=== PATIENT | male | born 1940 | race Caucasian/White ===

== ENCOUNTER 2023-07-23 11:07 | Inpatient (IN) | payer MEDICARE, OTHER, SELFPAY ==
[2023-07-23] VITALS (15 sets, daily range): BP systolic 91–170; BP diastolic 58–91; PULSE 77–100; RESP 7–32; TEMP 36.8; O2SAT 90–99; BMI 26.4
[2023-07-23 12:49] LABS: Basophils % 0.6 %; Eosinophils % 0.6 %; Hematocrit 42.7 % (37-53); Lymphocytes # 0.1 10^3/uL (0.8-4.8); Lymphocytes % 7.1 %; Mean Corpuscular HGB Conc 35.1 g/dL (30-55); Mean Corpuscular Hemoglobin 31.6 pg (27-33); Mean Corpuscular Volume 90.1 fl (82-101); Mean Platelet Volume 9.5 fL (7.4-10.4); Monocytes % 1.3 %; Neutrophils # 1.38 10^3/uL (1.8-7.7); Neutrophils % 89.8 %; Nucleated Red Blood Cells % 0 %; Platelet Count 149 10^3/cmm (157-399); Red Blood Count 4.74 10^6/uL (3.85-5.65); Red Cell Distribution Width 12.6 % (12.1-15.1); White Blood Count 1.54 10^3/uL (3.29-11.43)
[2023-07-23 13:14] LABS: Alanine Aminotransferase 15 U/L (0-41); Alkaline Phosphatase 123 U/L (40-130); Anion Gap 18.3 (5-19); Aspartate Amino Transferase 18 U/L (0-40); Blood Urea Nitrogen 16 mg/dL (8-23); Calcium 9.1 mg/dL (8.5-10.5); Carbon Dioxide 22 mmol/L (22-29); Chloride 103 mmol/L (98-107); Globulin 3.1 g/dL (1.3-4.6); Glucose 150 mg/dL (65-115); Lipase 24 U/L (13-60); Osmolality Calculated 294 mOsm/kg (285-295); Potassium 3.3 mmol/L (3.5-5.1); Sodium 140 mmol/L (136-145); Total Bilirubin 1.2 mg/dL (0.15-1.2); Total Protein 7.1 g/dL (6.6-8.7)
--- NOTE | 2023-07-23 13:34 | ECG_ITS ---
[facility] Test Date: 2023-07-23 Pat Name: Adolfo Ramos Department: Room: Gender: Male Automatic Thread Winder: : 1940 Requested By: Imelda Burgess Order Number: [id number] Jayden MD: Mesfin Vitale M.D. Measurements Intervals [place] Rate: 105 P: 38 [place]: 207 QRS: 50 QRSD: 89 T: 108 QT: 345 QTc: 456 Interpretive Statements SINUS TACHYCARDIA WITH OCCASIONAL VENTRICULAR PREMATURE COMPLEXES WITH OCCASIONAL SUPRAVENTRICULAR PREMATURE COMPLEXES ST DEVIATION AND MODERATE T-WAVE ABNORMALITY, CONSIDER LATERAL ISCHEMIA [-0.1+ mV T-WAVE IN I/aVL/V5/V6] No previous ECG available for comparison Electronically Signed On 07-24-2023 23:27:16 DOBBY LOOM WEAVER by Mesfin Vitale M.D. [id number]
--- NOTE | 2023-07-23 13:42 | PC.PHAR ---
PT DOESN'T KNOW WHAT MEDS HE TAKES. PERMISSION GRANTED TO CALL [facility] [place].CLOSED UNTIL 2PM. 1:43 PM
[2023-07-23 14:03] LABS: Add Urine Culture? Yes; Add Urine Microscopic? YES; Bacteria Urine 3+ /hpf; Bilirubin Urine Neg (Negative); Blood Urine 3+ (Negative); Glucose Urine UA Norm (Normal); Ketones Urine Negative (Negative); Leukocyte Esterase Urine 1+ (Negative); Nitrate Urine Negative (Negative); Protein Urine 1+ (Negative); RBC Urine 0-4 /hpf (0-2); Specific Gravity, Urine 1.005 (1.005-1.030); Squamous Epithelial Cell Urine 0-4 /hpf (0-5); Urine Appearance Hazy (CLEAR); Urine Color Colorless (Yellow); Urobilinogen Urine Norm (Negative); WBC Urine 25-40 /hpf (0-5); pH Urine 7 (5-7)
--- NOTE | 2023-07-23 14:08 | PC.PHAR ---
PT GETS FAMOTIDINE 20 MG TWICE DAILY-FILLED AT [place]. PT ALSO GETS OMEPRAZOLE 40 MG DAILY-FILLED AT [facility]. VERIFIED WITH BOTH PHARMACIES 07/23/23
--- NOTE | 2023-07-23 14:12 | ED_ITS ---
HPI - Nausea/Vomiting/Diarrhea 2 General: Chief complaint: Nausea/Vomiting/Diarrhea Stated complaint: N/V / Chils Time Seen by Provider: 07/23/23 12:51 History of Present Illness: 82-year-old male presents to the emergen cy department with sudden onset of nausea and vomiting. He states he also felt like he was having some chills that occurred approximately 3 hours prior to arrival. Patient does have a history of BPH and has had a previous TURP. Patient states that he feels increasingly weak. Patient did report that he had some upper middle back pain for a brief period 3 days ago. He states this pain resolved at that time and he did not think anything further of it. Patient's states that they did have a CT calcium cardiac scan at [facility] in [facility] and she felt that the patient's CAC score was over 400. Associated nausea: Yes Associated symtoms: Reports nausea Review of Systems 2 GI: Reports: nausea and vomiting Physical Exam 2 Narrative: EXAM NARRATIVE: Constitutional: the patient appears well nourished and with normal development. Vital signs reviewed as documented. HENMT: Normocephalic, atraumatic. External ears normal appearance without drainage. Nose without drainage, normal appearance. Mucus membranes moist. Neck is supple, No jugular venous distension, trachea is midline, no appreciable carotid bruits. No lymphadenopathy. No meningeal signs. Flexion, extension and lateral rotation is without pain. Eyes: Pupils are equal, round, reactive to light and accommodation. No scleral icterus. Extra-ocular movement are intact. Thorax is symmetrical and with equal rise and fall with respirations. Resp: Lungs are clear to auscultation. No wheezes, rales, crackles or ronchi at present. Cardio: Regular rate and rhythm. Positive S1, S2. No appreciable murmurs, rubs or gallops. GI: Abdominal exam reveals normal bowel sounds to all quadrants. No organomegaly. No obvious palpable masses noted. No hepatomegally appreciated. Soft, non-tender to palpation. Extremity: Extremities are non-edematous and both femoral and pedal pulses are 2+ and equal bilaterally. Moves all extremities well, sensation in all extremities. Neuro: Alert and oriented x4, person, place, time and situation. Cranial nerves II through XII are grossly intact, there is no focal neurological deficits that I can appreciate at present. Motor strength in the upper and lower extremities are equal and bilateral 5/5. Psych: Cooperative, calm, normal thought process, appropriate judgment. Skin: No lesions, rashes. No gross abnormalities noted. Back: Symmetrical, no obvious deformity, No CVA tenderness Course 2 Vital Signs: Vital signs: Vital Signs Temperature 98.3 F 07/23/23 11:20 Pulse Rate 86 07/23/23 19:53 Respiratory Rate 29 H 07/23/23 19:53 Blood Pressure 126/80 07/23/23 19:53 Pulse Oximetry 93 07/23/23 19:53 Oxygen Delivery Me thod Room Air 07/23/23 19:34 Oxygen Flow Rate 2 07/23/23 16:04 MDM - Nausea/Vomiting/Diarrhea Medical Decision Making Physical exam completed and documented, I will obtain serial cardiac enzymes, serial twelve-lead EKGs, chest x-ray, CBC, CMP, urinalysis, B-type natriuretic peptide, PT/PTT/INR, and a chest x-ray. I will provide cardiac dose aspirin. I will also provide loading dose of heparin and heparin drip as well as evaluate the need for nitroglycerin drip. I have reviewed previous and pertinent medical records for assist in obtaining beneficial medical information to improved the care and treatment of the patient. I have consulted the hospitalist and placed a cardiology consultation. I have provided Rocephin for the patient's urinary tract infection. At the request of Dr. Puckett I have ordered a CT scan abdomen pelvis to rule out prostatitis. Lab Data I reviewed the patient's lab results. 07/23/23 12:35 07/23/23 12:35 Radiology Impressions Chest X-Ray 07/23/23 14:56 IMPRESSION: 1. No acute cardiopulmonary abnormality. Abdomen/Pelvis CT 07/23/23 18:15 IMPRESSION: 1. Findings suggestive of cystitis with ascending urinary infection bilaterally. No convincing evidence of pyelonephritis, though there are 2 subcentimeter foci of hypoenhancement in the left kidney raising the question of very early pyelonephritis. Correlation with urinalysis and laboratory findings is recommended. Laboratory Results WBC 1.54 10^3/uL (3.29-11.43) L 07/23/23 12:35 RBC 4.74 10^6/uL (3.85-5.65) 07/23/23 12:35 Hgb 15.00 g/dL (11.27-16.99) 07/23/23 12:35 Hct 42.7 % (37-53) 07/23/23 12:35 MCV 90.1 fl (82-101) 07/23/23 12:35 MCH 31.6 pg (27-33) 07/23/23 12:35 MCHC 35.1 g/dL (30-55) 07/23/23 12:35 RDW 12.6 % (12.1-15.1) 07/23/23 12:35 Plt Count 149 10^3/cmm (157-399) L 07/23/23 12:35 MPV 9.5 fL (7.4-10.4) 07/23/23 12:35 Neut % (Auto) 89.8 % 07/23/23 12:35 Lymph % (Auto) 7.1 % 07/23/23 12:35 [place] % (Auto) 1.3 % 07/23/23 12:35 Eos % (Auto) 0.6 % 07/23/23 12:35 Baso % (Auto) 0.6 % 07/23/23 12:35 Neut # (Auto) 1.38 10^3/uL (1.8-7.7) L 07/23/23 12:35 Lymph # (Auto) 0.1 10^3/uL (0.8-4.8) L 07/23/23 12:35 [place] # (Auto) 0.0 10^3/uL (0.2-0.9) L 07/23/23 12:35 Eos # (Auto) 0.0 10^3/uL (0.0-0.8) 07/23/23 12:35 Baso # (Auto) 0.0 10^3/uL (0.0-0.1) 07/23/23 12:35 Nucleated RBC % (auto) 0 % 07/23/23 12:35 Nucleated RBCs # 0.0 /100WBC 07/23/23 12:35 Sodium 140 mmol/L (136-145) 07/23/23 12:35 Potassium 3.3 mmol/L (3.5-5.1) L 07/23/23 12:35 Chloride 103 mmol/L (98-107) 07/23/23 12:35 Carbon Dioxide 22 mmol/L (22-29) 07/23/23 12:35 Anion Gap 18.3 (5-19) 07/23/23 12:35 BUN 16 mg/dL (8-23) 07/23/23 12:35 Creatinine 0.5 mg/dL (0.7-1.2) L 07/23/23 12:35 GFR Calculation Not Reportable 07/23/23 12:35 Glucose 150 mg/dL (65-115) H 07/23/23 12:35 Calculated Osmolality 294 mOsm/kg (285-295) 07/23/23 12:35 Lactic Acid 1.5 mmol/L (0.5-2.2) 07/23/23 12:35 Calcium 9.1 mg/dL (8.5-10.5) 07/23/23 12:35 Total Bilirubin 1.2 mg/dL (0.15-1.2) 07/23/23 12:35 AST 18 U/L (0-40) 07/23/23 12:35 ALT 15 U/L (0-41) 07/23/23 12:35 Alkaline Phosphatase 123 U/L (40-130) 07/23/23 12:35 Troponin T Baseline 50 ng/L (0-15) H 07/23/23 16:52 Troponin T 120 Minute 56.82 ng/L (0-15) H 07/23/23 19:10 Delta Troponin T 6.82 ABS# (0-10) 07/23/23 19:10 NT-Pro-B Natriuret Pep 1467 pg/mL (0-450) H 07/23/23 16:52 Total Protein 7.1 g/dL (6.6-8.7) 07/23/23 12:35 Albumin 4.0 g/dL (3.5-5.2) 07/23/23 12:35 Globulin 3.1 g/dL (1.3-4.6) 07/23/23 12:35 Lipase 24 U/L (13-60) 07/23/23 12:35 Procalcitonin 0.34 ng/mL (0-0.5) 07/23/23 12:35 Urine Color Colorless (Yellow) 07/23/23 11:11 Urine Appearance Hazy (CLEAR) A 07/23/23 11:11 Urine pH 7 (5-7) 07/23/23 11:11 Ur Specific Lillian 1.005 (1.005-1.030) 07/23/23 11:11 Urine Protein 1+ (Negative) H 07/23/23 11:11 Urine Glucose (UA) Norm (Normal) 07/23/23 11:11 Urine Ketones Negative (Negative) 07/23/23 11:11 Urine Blood 3+ (Negative) H 07/23/23 11:11 Urine Nitrate Negative (Negative) 07/23/23 11:11 Urine Bilirubin Neg (Negative) 07/23/23 11:11 Urine Urobilinogen Norm mg/dL (Negative) 07/23/23 11:11 Ur Leukocyte Esterase 1+ (Negative) H 07/23/23 11:11 Urine RBC 0-4 /hpf (0-2) H 07/23/23 11:11 Urine WBC 25-40 /hpf (0-5) H 07/23/23 11:11 Ur Squamous Epith Cells 0-4 /hpf (0-5) H 07/23/23 11:11 Amorphous Sediment Not Reportable 07/23/23 11:11 Urine Bacteria 3+ /hpf (NONE) H 07/23/23 11:11 Influenza Type A Ag negative (Negative) 07/23/23 15:02 Influenza Type B Ag negative (Negative) 07/23/23 15:02 SARS-CoV-2 Ag (Rapid) negative (Negative) 07/23/23 15:02 All radiology interpretation(s) finalized by discharge EKG Data EKG 1: Interpretation: Twelve-lead EKG obtained at 1334 and reviewed at 1338 demonstrates sinus tachycardia with a ventricular rate of 105 bpm, MT interval is prolonged at 207, QRS duration 89, QT 345, QTc 4 6, there is ST depression in V3 V4 V5 and V6 concerning for NSTEMI EKG 2: Interpretation: Twelve-lead EKG obtained at 1839 reviewed at 1840 demonstrates sinus rhythm with first-degree AV block and occasional multifocal PVCs. Ventricular rate of 89 bpm, MT interval 213, QRS duration 93, QT 384, QTc 431. Critical Care Time 2 Critical Care Time: Critical Care Time: Yes Total Critical Care Time: 60 Attestation: The patients was emergently evaluated as this patient's presentation and case had a high probability of a clinically significant, sudden, or life threatening deterioration of this patient's initial critical presentation or condition which required my full and direct attention, intervention and personal management. Discharge Plan Discharge Patient Disposition: Admitted As Inpatient Admit Provider: Aditi Puckett Clinical Impression: Acute non-ST elevation myocardial infarction (NSTEMI), Pyelonephritis, Cystitis Condition: Stable Coding Level of Care Code ED Joggle Press Operator for Nita Barton
[2023-07-23] MEDS: cefTRIAXone 1,000 MG in sodium chloride 0.9% (plus) 50 ML 100 MG IV (14:33)
[2023-07-23 14:38] LABS: Lactic Sepsis W/Reflex 1.5 mmol/L (0.5-2.2)
[2023-07-23 14:47] LABS: Procalcitonin 0.34 ng/mL (0-0.5)
--- NOTE | 2023-07-23 14:56 | XRR_ITS ---
PROCEDURE INFORMATION: Exam: XR Chest Exam date and time: 07/23/2023 3:24 PM Age: 82 years old Clinical indication: Cough and fever; Additional info: Fever/chills/cough TECHNIQUE: Imaging protocol: Radiologic exam of the chest. Views: 2 views. COMPARISON: No relevant prior studies available. FINDINGS: Lungs: No focal consolidation. There are postsurgical changes of the left upper lobe near the apex. 2 cm right lower lobe calcified granuloma. Pleural spaces: No evidence of pneumothorax. No evidence of pleural effusion. Heart/Mediastinum: Cardiomediastinal silhouette is within normal limits. Bones/joints: No evidence of acute osseous abnormality. Multiple old left-sided rib fractures. Cervical fusion hardware noted. XR/XR chest 2V* [id number] IMPRESSION: 1. No acute cardiopulmonary abnormality.
[2023-07-23 15:28] LABS: Influenza A by IFA negative (Negative); Influenza B by IFA negative (Negative); SARS Covid-2 Antigen negative (Negative)
[2023-07-23 17:18] LABS: Troponin(5th) Baseline 50 ng/L (0-15)
[2023-07-23 17:26] LABS: NT Pro B Type Natriuretic Pept 1467 pg/mL (0-450)
--- NOTE | 2023-07-23 18:15 | CTR_ITS ---
PROCEDURE INFORMATION: Exam: CT Abdomen And Pelvis With Contrast Exam date and time: 07/23/2023 6:51 PM Age: 82 years old Clinical indication: Abnormal findings; Abnormal lab test; Other: Leukopenia/hematuria/bacteriuria; Nausea and vomiting; Prior surgery; Surgery date: 6+ months; Surgery type: Appy; Patient HX: N/v with leukopenia and hematuria/bacteriuria; Additional info: Nausea/vomiting TECHNIQUE: Imaging protocol: Computed tomography of the abdomen and pelvis with contrast. Radiation optimization: All CT scans at this facility use at least one of these dose optimization techniques: automated exposure control; mA and/or kV adjustment per patient size (includes targeted exams where dose is matched to clinical indication); or iterative reconstruction. Contrast material: OMNI 350; Contrast volume: 100 ml; Contrast route: INTRAVENOUS (IV); COMPARISON: CR XR chest 2V* [id number] 07/23/2023 3:24 PM RADIATION DOSE METRICS: Total DLP (mGy-cm): 967.25 FINDINGS: Lungs: Subsegmental bibasilar atelectasis. Calcified right lower lobe granuloma. The visualized lung bases are otherwise grossly clear. Diaphragm: No evidence of diaphragmatic defect. Liver: No focal hepatic lesion. Gallbladder and bile ducts: Unremarkable. No intra-hepatic or extra-hepatic biliary dilatation. Pancreas: Mildly atrophic. Otherwise grossly unremarkable. Spleen: Multiple splenic calcifications compatible with sequela of a remote granulomatous process. Otherwise grossly unremarkable. Adrenal glands: Unremarkable. Kidneys and ureters: There are simple appearing left-sided renal cysts for which dedicated imaging follow-up is not required. There is bilateral periureteral haziness and mild pelviectasis without evidence of ureteral stone concerning for ascending urinary infection. No convincing evidence of pyelonephritis. There are 2 subcentimeter foci of hypoenhancement in the left kidney, indeterminate (image 39 of the axial series 4). Very early pyelonephritis would be difficult to exclude. Correlation with urinalysis and laboratory findings is recommended. Stomach and bowel: Diverticulosis without evidence of acute diverticulitis. No bowel obstruction or perienteric inflammatory changes. Appendix: The appendix is not visualized, however there are no findings to suggest appendicitis. Intraperitoneal space: No evidence of free air or fluid collection. Vasculature: Parascribe aorto for The celiac trunk, SMA and SHARMIN are grossly patent. No evidence of IVC thrombus. The portal vein, SMV and splenic veins are grossly patent. Lymph nodes: No adenopathy. Urinary bladder:. Diffuse bladder wall thickening/haziness. Otherwise grossly unremarkable. Reproductive: Grossly unremarkable. Bones/joints: No evidence of acute fracture or aggressive osseous lesion. Moderate-severe multilevel spondylosis of the lumbar spine. Total right hip arthroplasty without gross evidence of complication. There are heterotopic ossifications along the lateral aspect of the proximal femur. Soft tissues: No evidence of fluid collection or hematoma in the superficial soft tissues. CT/CT abdomen pelvis w con* [id number] IMPRESSION: 1. Findings suggestive of cystitis with ascending urinary infection bilaterally. No convincing evidence of pyelonephritis, though there are 2 subcentimeter foci of hypoenhancement in the left kidney raising the question of very early pyelonephritis. Correlation with urinalysis and laboratory findings is recommended.
[2023-07-23] MEDS: aspirin 81 mg Chew Tablet 324 MG PO (18:24)
[2023-07-23] MEDS: clopidogrel 300 mg Tablet PO (18:24)
[2023-07-23] MEDS: nitroglycerin 1 gm/inch oint Pkt 1 INCH TOPICAL (18:25)
[2023-07-23] MEDS: heparin 5,000 unit/mL INJ 1 mL 4000 UNIT IVP (18:29)
--- NOTE | 2023-07-23 18:39 | ECG_ITS ---
[facility] Test Date: 2023-07-23 Pat Name: Adolfo Ramos Department: Room: Gender: Male Manager Marketing Communications: : 1940 Requested By: Josh Hampton Order Number: [id number] Jayden MD: Mesfin Vitale M.D. Measurements Intervals [place] Rate: 89 P: 29 [place]: 213 QRS: 43 QRSD: 93 T: 37 QT: 384 QTc: 469 Interpretive Statements INDETERMINATE SUPRAVENTRICULAR RHYTHM MODERATE ST DEPRESSION [0.05+ mV ST DEPRESSION] Compared to ECG 07/23/2023 16:43:45 Sinus rhythm no longer present Ventricular premature complex(es) no longer present Short KS interval no longer present ST (T wave) deviation still present Electronically Signed On 07-24-2023 23:26:04 BRAND AMBASSADOR by Mesfin Vitale M.D. [id number]
[2023-07-23] MEDS: iohexol 350 mg/mL 500 mL Btl (per mL) IV (18:53)
[2023-07-23] MEDS: heparin drip 25,000 UNIT/500 ML PREMIX 29.21 UNIT IV (19:10)
[2023-07-23 19:44] LABS: Troponin 5 2HR 56.82 ng/L (0-15); Troponin 5 2HR Delta 6.82 ABS# (0-10)
--- NOTE | 2023-07-23 20:53 | P.HP_ITS ---
Providers/Chief Complaint 2 Admitting Physician: Aditi Puckett MD Chief Complaint: N/V / Chils History of Present Illness Adolfo Ramos is a 82 year old male with a past medical history of hypertension, hyperlipidemia, extensive family history of CAD, who presents [facility] due to a 2 to 3-week history of substernal left-sided chest pain, with shortness of breath, and now with left-sided flank pain. 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, when he started to develop severe chills, severe shakes, feeling unwell, he has been having some left flank pain, but now he is developing bilateral flank pain, felt fatigue, malaise, no fevers, no cough, no abdominal pain, no diarrhea, does report dysuria Review of Systems 2 Const: Denies: fever(s) Card: Reports: chest pain Resp: Denies: dyspnea GI: Denies: abdominal pain : Reports: flank pain and dysuria Medications/Allergies Home Medications Medication Instructions Recorded Confirmed Last Taken Type amlodipine 10 mg tablet 10 mg PO QPM 07/23/23 07/23/23 07/22/23 History calcium carbonate 600 mg calcium 1,200 mg PO QPM 07/23/23 07/23/23 07/22/23 History (1,500 mg) tablet (Calcium) docusate sodium 100 mg capsule 100 mg PO QPM 07/23/23 07/23/23 07/22/23 History (Colace) donepezil 10 mg tablet 10 mg PO BEDTIME 07/23/23 07/23/23 07/22/23 History famotidine 20 mg tablet 20 mg PO BID 07/23/23 07/23/23 07/22/23 History finasteride 5 mg tablet 5 mg PO QPM 07/23/23 07/23/23 07/22/23 History ibuprofen 200 mg tablet 600 mg PO Q6H PRN Pain 07/23/23 07/23/23 Unknown History lactobacillus combination no.4 3 3,000 mmu cells PO QPM 02/08/1407/23/23 07/22/23 History billion cell capsule (Probiotic) omeprazole 40 mg capsule,delayed 40 mg PO QPM 07/23/23 07/23/23 07/22/23 History release sertraline 25 mg tablet 25 mg PO QPM 07/23/23 07/23/23 07/22/23 History simvastatin 20 mg tablet 10 mg PO QPM 07/23/23 07/23/23 07/22/23 History Allergies Allergy/AdvReac Type Severity Reaction Status Date / Time No Known Allergies Allergy Unverified 07/23/23 13:47 PFSH Acute 2 PFSH: Medical History (Updated 07/23/23 @ 20:55 by Geoff Alvarez MD) BPH (benign prostatic hyperplasia) HTN, goal below 130/80 HLD (hyperlipidemia) Surgical History (Updated 07/23/23 @ 20:55 by Geoff Alvarez MD) History of bilateral knee replacement Family History (Updated 07/23/23 @ 20:55 by Geoff Alvarez MD) Mother CAD (coronary artery disease) Brother CAD (coronary artery disease) Sister CAD (coronary artery disease) Social History (Updated 07/23/23 @ 20:54 by Geoff Alvarez MD) Smoking and tobacco/nicotine status: never used tobacco/nicotine Alcohol intake: never Substance/Drug Use: never Vitals/I&O/Wt Last Vital Signs Temp 98.3 F 07/23/23 11:20 Pulse 86 07/23/23 19:53 Resp 29 H 07/23/23 19:53 BP 126/80 07/23/23 19:53 Pulse Ox 93 07/23/23 19:53 O2 Del Method Room Air 07/23/23 19:34 O2 Flow Rate 2 07/23/23 16:04 07/23/23 07/23/23 07/23/23 06:59 14:59 22:59 Intake Total 50 / 50 Balance 50 / 50 Weight last 48 hrs Weight 104.326 kg Physical Exam 2 Const: COMMON NORMALS: no acute distress and patient oriented x3 HENMT: COMMON NORMALS: normocephalic HEAD & SCALP: normocephalic Eye: COMMON NORMALS: Equal, round and reactive pupils present Neck/C-Spine: COMMON NORMALS: no JVD Lymph: LYMPHATIC: no lymphadenopathy noted Resp: COMMON NORMALS: normal respiratory effort, No retractions, No use of accessory muscles and clear to auscultation bilaterally AUSCULTATION: clear to auscultation bilaterally Cardio: COMMON NORMALS: no JVD, regular rate, regular rhythm, S1 normal heart sound present and S2 normal heart sound present RATE: regular rate RHYTHM: regular rhythm HEART SOUNDS: S1 normal heart sound present and S2 normal heart sound present GI: COMMON NORMALS: Normal to inspection, nondistended, normoactive bowel sounds present, Soft to palpation and non-tender PALPATION: Yes Soft to palpation and Yes No hepatosplenomegaly present : BLADDER/KIDNEY EXAM: Yes CVA tenderness on the left Extremity: COMMON NORMALS: no calf tenderness and no pedal edema Neuro: COMMON NORMALS: patient oriented x3, CN's II-XII intact bilaterally and moves all extremities Psych: COMMON NORMALS: mental status grossly normal Data 07/23/23 12:35 07/23/23 12:35 Micro: Microbiology 07/23/23 14:34 Blood Culture - Preliminary Blood SPECIMEN COLLECTED 07/23/23 14:31 Blood Culture - Preliminary Blood SPECIMEN COLLECTED A&P Assessment and plan (1) Acute non-ST elevation myocardial infarction (NSTEMI): (2) Cystitis: (3) Pyelonephritis: Plan Chest pain, with NSTEMI -Has received aspirin, Plavix load, heparin drip in the emergency room, nitroglycerin patch Plan -Monitor in CCU -Serial EKG, serial troponins, telemetry monitoring -Continue heparin drip -Continue aspirin, statin -Cardiac echo -Full code -Heparin drip for DVT prophylaxis UTI with pyelonephritis -Urine cultures, blood cultures -Continue Rocephin Attestations 2 Medical Necessity Statement*: Patient requires hospitalization for chest pain, NSTEMI, UTI with pyelonephritis, inpatient, greater than 2 midnights Diagnoses Acute non-ST elevation myocardial infarction (NSTEMI) I21.4 Cystitis N30.90 Pyelonephritis N12
[2023-07-23] MEDS: sodium chloride 0.9% 1,000 ML 50 ML IV (21:31)
[2023-07-23] MEDS: heparin drip 25,000 UNIT/500 ML PREMIX 30 UNIT IV (21:33)
--- NOTE | 2023-07-23 22:33 | ECG_ITS ---
[facility] Test Date: 2023-07-23 Pat Name: Adolfo Ramos Department: Room: Gender: Male Automation Machine Operator: : 1940 Requested By: Josh Hampton Order Number: [id number] Jayden MD: Mesfin Vitale M.D. Measurements Intervals [place] Rate: 94 P: 201 DC: 111 QRS: 55 QRSD: 90 T: 60 QT: 363 QTc: 455 Interpretive Statements SINUS RHYTHM WITH SHORT DC INTERVAL WITH OCCASIONAL VENTRICULAR PREMATURE COMPLEXES MODERATE ST DEPRESSION [0.05+ mV ST DEPRESSION] Compared to ECG 07/23/2023 13:34:17 Short DC interval now present ST (T wave) deviation now present Sinus tachycardia no longer present T-wave abnormality no longer present Possible ischemia no longer present Electronically Signed On 07-24-2023 23:26:28 TEASEL SETTER by Mesfin Vitale M.D. [id number]
[2023-07-23 23:59] LABS: Troponin 5 6HR 100.3 ng/L (0-15); Troponin 5 6HR Delta 50.3 ng/L (0-12)
[2023-07-24] VITALS (9 sets, daily range): BP systolic 106–155; BP diastolic 54–75; PULSE 65–83; RESP 15–28; TEMP 36.9–37.6; O2SAT 92–94
[2023-07-24 00:14] LABS: C Reactive Protein 93.9 mg/L (0.0-4.9); Chol HDL Ratio 1.33 mg/dL (1.0-5.00); Cholesterol 104 mg/dL (0-200); HDL Cholesterol 78 mg/dL (60-100); LDL Cholesterol Calculated 21 mg/dL (50-129); LDL HDL Ratio 0.27 RATIO (0.00-3.22); NT Pro B Type Natriuretic Pept 4464 pg/mL (0-450); Thyroid Stimulating Hormone 0.61 uIU/mL (0.27-4.20); Triglycerides 26 mg/dL (0-150)
[2023-07-24 00:49] LABS: Estmated Average Glucose 94; Hemoglobin A1C 4.9 % (4.0-6.0)
[2023-07-24] MEDS: morphine 4 mg/mL SDV 1 mL 2 MG IVP (01:31)
[2023-07-24 01:39] LABS: Basophils # 0.1 10^3/uL (0.0-0.1); Basophils % 0.4 %; Eosinophils # 0.1 10^3/uL (0.0-0.8); Eosinophils % 0.6 %; Hematocrit 38.5 % (37-53); Lymphocytes # 0.5 10^3/uL (0.8-4.8); Lymphocytes % 3.7 %; Mean Corpuscular HGB Conc 35.3 g/dL (30-55); Mean Corpuscular Hemoglobin 31.9 pg (27-33); Mean Corpuscular Volume 90.4 fl (82-101); Mean Platelet Volume 10.6 fL (7.4-10.4); Monocytes # 1.4 10^3/uL (0.2-0.9); Monocytes % 9.9 %; Neutrophils # 11.75 10^3/uL (1.8-7.7); Neutrophils % 84.6 %; Nucleated Red Blood Cells % 0 %; Platelet Count 143 10^3/cmm (157-399); Red Blood Count 4.26 10^6/uL (3.85-5.65); White Blood Count 13.91 10^3/uL (3.29-11.43)
[2023-07-24 01:57] LABS: Anion Gap 18.4 (5-19); Blood Urea Nitrogen 19 mg/dL (8-23); Calcium 8.7 mg/dL (8.5-10.5); Carbon Dioxide 24 mmol/L (22-29); Chloride 104 mmol/L (98-107); Glucose 130 mg/dL (65-115); Magnesium 1.8 mg/dL (1.7-2.3); Osmolality Calculated 300 mOsm/kg (285-295); Phosphorus 4.8 mg/dL (2.5-4.5); Potassium 3.4 mmol/L (3.5-5.1); Sodium 143 mmol/L (136-145)
[2023-07-24 02:01] LABS: Partial Thromboplastin Time 73.1 SECONDS (23.9-36.7)
[2023-07-24] MEDS: vancomycin 1,500 MG/300 ML PIGGYBACK 200 MG IV ×2 (03:36→16:56)
--- NOTE | 2023-07-24 06:00 | USCV_ITS ---
Adolfo Ramos Age: 82 Gender: M : 1940 Exam Date: 07/24/2023 08:52 Ordering Phys: Geoff Alvarez MD Technologist: Rajiv Sher Exam Location: [facility] [place] Indication: sob BP: 122 / 54 HR: 66 Rhythm: Sinus Technical Quality: Adequate MEASUREMENTS (Male / Female) Normal Values 2D ECHO LVOT Diameter 2.0 cm LV Ejection Fraction MOD 2C 71.2 % LV Ejection Fraction 2C AL 72.0 % LA Diameter 4.8 cm LA Width 3.8 cm LA Height 5.9 cm RA Width 4.6 cm RA Height 6.3 cm Aorta at Sinotubular Diameter 2.7 cm M-MODE Aortic Annulus Diameter 4.1 cm LA Ao Ratio MM 1.1 MV E Point Septal Separation 0.6 cm DOPPLER AV Peak Velocity 220.8 cm/s LVOT Peak Velocity 119.0 cm/s AV Area Cont Eq vti 1.9 cm squared AV Area Cont Eq pk 1.8 cm squared MV Peak Velocity 99.0 cm/s MV Area PHT 3.1 cm squared Mitral E to A Ratio 0.8 MV E' Velocity 35.0 cm/s Mitral E to MV E' Ratio 7.3 Mitral E to LV E' Lateral Ratio 7.6 Mitral E to LV E' Septal Ratio 7.2 TR Peak Velocity 389.6 cm/s TR Peak Gradient 60.7 mmHg TR Mean Velocity 280.9 cm/s TR Mean Gradient 37.3 mmHg TR Velocity Time Integral 95.1 cm Right Atrial Pressure 8.0 mmHg Pulmonary Artery Systolic Pressu 68.7 mmHg PV Peak Velocity 106.0 cm/s RV Acceleration Time 0.1 s RV Ejection Time 0.3 s RV AcT/ET 0.4 FINDINGS Left Ventricle Left ventricle is normal in size. LV systolic function is normal with EF of 60 to 65%. No regional wall motion abnormalities are seen. Grade 1 diastolic dysfunction Right Ventricle Normal in size and function Right Atrium Normal in size Left Atrium Normal in size Mitral Valve Structurally normal mitral valve. Mild mitral regurgitation. Aortic Valve Aortic valve is thickened. Mild aortic stenosis with aortic valve area of 1.88 cm squared and mean gradient of 10 mmHg. Mild aortic regurgitation. Tricuspid Valve Mild tricuspid regurgitation. Insufficient TR jet to calculate RVSP Pulmonic Valve Not well visualized Pericardium Normal Aorta Normal in size IVC Not well visualized CONCLUSIONS LV systolic function is normal with EF of 60 to 65%. Grade 1 diastolic dysfunction. Mild aortic stenosis Mild aortic regurgitation Mild mitral regurgitation Mild tricuspid regurgitation No comparison studies are available. Mesfin Vitale MD (Electronically Signed) Final Date: 24 July 2023 13:04 S
--- NOTE | 2023-07-24 08:13 | P.CONIM_ITS ---
Providers/Reason For Consult 2 Consulting Physician/Specialty*: Mesfin Vitale MD/ Cardiology Reason for Consult*: NSTEMI Requesting Physician: Dr Hampton Attending Physician: Aditi Puckett MD History of Present Illness History of Present Illness Adolfo Ramos is a 82 year old male with past medical history of hypertension who has been having on and off chest discomfort for the last 2 to 3 weeks. On day of admission to hospital, he was having shaking. On admission his troponin was found to be 50 and trended up to 100. Was found to have UTI. CT scan showing cystitis. EKG showing significant ST depressions in multiple leads. He had calcium scoring performed at outside hospital and has been told that it was in thousands. Significant family history of CAD. Review of Systems 2 Const: Denies: fever(s) Card: Reports: chest pain Resp: Denies: dyspnea GI: Denies: abdominal pain : Reports: flank pain and dysuria Medications/Allergies Home Medications Medication Instructions Recorded Confirmed Last Taken Type amlodipine 10 mg tablet 10 mg PO QPM 07/23/23 07/23/23 07/22/23 History calcium carbonate 600 mg calcium 1,200 mg PO QPM 07/23/23 07/23/23 07/22/23 History (1,500 mg) tablet (Calcium) docusate sodium 100 mg capsule 100 mg PO QPM 07/23/23 07/23/23 07/22/23 History (Colace) donepezil 10 mg tablet 10 mg PO BEDTIME 07/23/23 07/23/23 07/22/23 History famotidine 20 mg tablet 20 mg PO BID 07/23/23 07/23/23 07/22/23 History finasteride 5 mg tablet 5 mg PO QPM 07/23/23 07/23/23 07/22/23 History ibuprofen 200 mg tablet 600 mg PO Q6H PRN Pain 07/23/23 07/23/23 Unknown History lactobacillus combination no.4 3 3,000 mmu cells PO QPM 07/23/23 07/23/23 07/22/23 History billion cell capsule (Probiotic) omeprazole 40 mg capsule,delayed 40 mg PO QPM 07/23/23 07/23/23 07/22/23 History release sertraline 25 mg tablet 25 mg PO QPM 07/23/23 07/23/2324 History simvastatin 20 mg tablet 10 mg PO QPM 07/23/23 07/23/23 07/22/23 History Allergies Allergy/AdvReac Type Severity Reaction Status Date / Time No Known Allergies Allergy Unverified 07/23/23 13:47 Current Medications Generic Name Dose Route Start Last Admin Trade Name Freq PRN Reason Stop Dose Admin Heparin Sodium/Sodium Chloride 25,000 unit in 500 mls @ 0 mls/hr 07/23/23 21:00 07/24/23 02:04 Heparin Drip IV 14.38 unit/kg/hr .Q0M JOELLE 30 mls/hr Titration Protocol Per Protocol Sodium Chloride 1,000 mls @ 50 mls/hr 07/23/23 21:05 07/23/23 21:31 Sodium Chloride 0.9% IV 50 mls/hr .Q20H JOELLE Administration Vancomycin/PEG/NADA/Lysine/Water 1,500 mg in 300 mls @ 200 mls/hr 07/24/23 03:00 07/24/23 05:08 Vancocin IV Infused Q12H JOELLE Infusion Protocol Morphine Sulfate 2 mg 07/23/23 21:05 07/24/23 01:31 Morphine 4 Mg/Ml Sdv 1 Ml IVP 2 mg Q4H PRN Administration SEVERE PAIN PFSH Acute 2 PFSH: Medical History (Updated 07/24/23 @ 10:26 by Mesfin Vitale M.D) BPH (benign prostatic hyperplasia) HTN, goal below 130/80 HLD (hyperlipidemia) Surgical History History of bilateral knee replacement Family History Mother CAD (coronary artery disease) Brother CAD (coronary artery disease) Sister CAD (coronary artery disease) Social History Smoking and tobacco/nicotine status: never used tobacco/nicotine Alcohol intake: never Substance/Drug Use: never Vitals/I&O/Wt Last Vital Signs Temp 98.7 F 07/24/23 07:09 Pulse 67 07/24/23 07:09 Resp 17 07/24/23 07:09 BP 122/54 07/24/23 07:09 Pulse Ox 93 07/24/23 07:09 O2 Del Method Room Air 07/24/23 07:09 O2 Flow Rate 2 07/23/23 16:04 07/23/23 07/24/23 07/24/23 22:59 06:59 14:59 Intake Total 118.157 / 118.157 435.5 / 553.657 Output Total 250 / 250 350 / 600 Balance -131.843 / -131.843 85.5 / -46.343 Weight last 48 hrs Weight 234 lb 12.8 oz Weight 234 lb 14.4 oz Weight 230 lb Physical Exam 2 Narrative: GENERAL: Patient is alert, awake and oriented x3. [] NECK: No jugular vein distension. [] HEENT: No cyanosis. No icterus. No pallor. [] HEART: Regular S1 and S2. Grade 3/6 systolic murmur LUNGS: Clear to auscultate bilaterally. [] CENTRAL NERVOUS SYSTEM: Grossly nonfocal. [] EXTREMITIES: Lower extremities with no edema Data 07/24/23 01:16 07/24/23 01:16 Micro: Microbiology 07/23/23 14:34 Blood Culture - Preliminary Blood SPECIMEN COLLECTED 07/23/23 14:31 Blood Culture - Preliminary Blood SPECIMEN COLLECTED A&P Assessment and plan (1) Acute non-ST elevation myocardial infarction (NSTEMI): (2) Cystitis: (3) HLD (hyperlipidemia): Plan Patient had significant troponin uptrend. Has been having on and off chest discomfort episodes as well. Calcium scoring was very high at outside hospital. Given EKG changes showing ST depressions in multiple leads, we will proceed with coronary angiography with possible percutaneous coronary intervention. Risks and benefits of the procedure have been discussed. Patient and family understand these and want to proceed. Keep him n.p.o. We will order echocardiogram. Continue aspirin. Plavix was loaded yesterday. Continue anticoagulation Thank you for involving us with care of this patient. We will continue to follow. Please call with questions. Consult Attestations 2 Medical Necessity Statement: Care expected to cross 2 midnights Coding Level of Care Code Acute Code for Chg Fwd Diagnoses Acute non-ST elevation myocardial infarction (NSTEMI) I21.4 Cystitis N30.90 HLD (hyperlipidemia) E78.5
[2023-07-24] MEDS: aspirin 81 mg EC Tablet PO (08:40)
--- NOTE | 2023-07-24 08:42 | XACV_ITS ---
Exam Room: [facility] Ht: 178 cm Wt: 106 kg BSA: 2.32 m2 Gender: Male : 1940 Any Known Allergies: No known allergies Exam Priority: Routine Procedure(s): Procedure Description: Diagnostic procedure Procedure Description: PCI procedure Procedure Description: PTCA Procedure Description: Miscellaneous Procedure Description: ACT Procedure Description: Coronary Angiography Diagnostic Cath Status: Urgent Diagnostic Findings * Left Main is short. No significant disease.. * Left Anterior Descending has mild luminal irregularities.. * Circumflex has no significant disease.. * Mid Right Coronary Artery: subtotal occlusion, JIN: 1 flow. Has collaterals from left system.. * Coronary angiography shows right dominance. PCI Status: Urgent PCI Indication: NSTE - ACS Interventional Findings * Procedure details: We engaged RCA with AL 0.75 guide catheter. 0.014 run-through guidewire was used to cross the subtotally to totally occluded mid RCA stenosis. We attempted to cross the stenosis with 2.25 x 12 mm semicompliant balloon. However we could not cross site. We then dilated the stenosis at 1.5 x 12 mm semicompliant balloon. However this balloon could also not completely cross the stenosis. As patient was chest pain-free, has collaterals already to distal RCA, further attempts at revascularization were aborted. Guidewire and guide catheter were removed. Patient left the Blender / Cook in a stable condition.. * Mid Right Coronary Artery: 99% stenosis treated with a AB TREK 2.25X12 RX BALLOON, and AB MINI TREK 1.50X12 RX BALLOON. 99% residual stenosis, JIN: 1 flow. Conclusions 1. Subtotally occluded 2. , heavily calcified mid 3. RCA 4. . 5. S/p unsuccessful attempt at revascularization. As patient is chest pain-free, 6. has collaterals from the contralateral side, we will medically manage him.. 7. Mid Right Coronary Artery was treated with a Balloon, and Balloon. Recommendations * Dual antiplatelet therapy with aspirin and plavix. * High intensity statin therapy. * Outpatient cardiology follow up in 4 weeks. Interventional RX Recommendation: medical therapy and/or counseling Diagnostic RX Recommendation: PCI w/o planned CABG Anticoagulation: Heparin Pressures Phase:Rest AO : 77 / 55 ( 66 ) @ 10:36:00 AM 85 / 50 ( 64 ) @ 10:39:00 AM 98 / 62 ( 77 ) @ 10:54:00 AM Clinical Evaluation EBL: 5mL-10mL Procedural Details Pre-Procedure Time Out. Identified patient by full name and date of as verbalized by the patient/guarantor. Does the consent match the physician's order: Yes. Accurate & Complete Informed Consent: Yes. Inpatient/Outpatient History & Physical on Chart: Yes. If H&P is completed, is and addenduem needed: No; If yes, is the addendum complete: N/A. Visualize and Verify Site with Patient/Guarantor: N/A. Relevant Radiology Images available: Yes. Pre-op teaching completed and patient verbalized understanding. The risks, benefits, and alternatives of sedation and/or procedure were discussed by physician. The patient agrees to continue. Procedure started. [facility] Clinical Fraility Score: 3: Managing Well. Blender / Cook Indications: ACS > 24 hours. Chest Pain Symptom Assessment: Atypical Angina. Correct patient, site and procedure confirmed by cath team. Current diagnosis: NSTEMI. PERRLA. Strong, equal hand administrative director bilaterally. Lungs clear x 5 lobes. IV Site on Arrival: 20 gauge in the right anticubital. IV Site on Arrival: 20 gauge in the left forearm. IV Fluids: 0.9% NaCl at KVO. 0 mL infused prior to metallurgical lab technician. Oxygen started at 2liters/min via nasal canula. right groin was prepped with chloroprep then draped in the usual sterile fashion. right radial was prepped with chloroprep then draped in the usual sterile fashion. Baseline sample Acquired. HR: 70 BPM. Physician arrived. Current Diagnosis : NSTEMI. Lidocaine 1% infiltrated to the right radial. Arterial access obtained. A 5 fijian JR4 125cm catheter in over wire. Multiple views taken of right coronary artery. Catheter removed over the exchange wire. A 6 fijian TIG catheter in over wire. Multiple views taken of right coronary artery. Catheter redirected to the LCA. Multiple views taken of left coronary artery. Catheter removed over the exchange wire. 6 fijian AL 0.75 guide catheter was inserted over the wire. Runthrough guidewire was advanced through the guide catheter to lesion in the mid RCA. Balloon inserted to lesion in the mid RCA. Inflation number : 1 A AB TREK 2.25X12 RX BALLOON was prepped and advanced across the Mid RCA , then inflated to 4 YFN for 0:08 seconds. Results checked. Balloon out. A second Runthrough guidewire was advanced through the guide catheter to lesion in the mid RCA. The second Runthrough wire removed. Coil Winder 50 wire inserted and advanced to the Mid RCA. Coil Winder 50 wire removed. Inflation number : 2 A AB MINI TREK 1.50X12 RX BALLOON was prepped and advanced across the Mid RCA , then inflated to 8 YFN for 0:14 seconds. Balloon out. Results checked. Wire out. ACT drawn. Results 244 seconds. Therapeutic limits - pre-heparin administration 90-150 seconds and monitoring heparin during a vascular procedure >250 seconds. Guide catheter out. A TR Band was successful obtaining hemostatsis at the Right Radial artery insertion site. PERRLA. Strong, equal hand administrative director bilaterally. No VTE prophylaxis required. Vital chart was stopped. Medication's Wasted: Lidocaine 1% = 17 mL. Medication's Wasted: Nitro = 49.8 mcg. Medication's Wasted: Heparin = 2000 units. Medication's Wasted: Other = Fentanyl 50mcg. Total IV fluids: 51 mL. Complications: None. Estimated blood loss: 5mL-10mL. Responsiveness - Normal response to verbal stimuli; alert and oriented, PERRLA. Airway - Unaffected, no intervention required; spontaneous ventilation. Circulation: W/N/L, pulses unchanged. Nausea/Vomiting: No. Procedure completed. Patient transferred by bed to 1st floor. Access Site Site: Right Radial artery Sheath Size: 6 Fr Hemostasis Method: TR Band Hemostasis Success: Successful Procedure Medications Start: 10:25 AM Stop: 10:25 AM Medication: Versed Amount: 1 mg Route: I.V. Start: 10:25 AM Stop: 10:25 AM Medication: Fentanyl Amount: 50 mcg Route: I.V. Start: 10:33 AM Stop: 10:33 AM Medication: Nitrogylcerin Amount: 200 mcg Route: I.A. Start: 10:34 AM Stop: 10:34 AM Medication: Heparin Amount: 5000 units Route: I.V. Start: 10:38 AM Stop: 10:38 AM Medication: Versed Amount: 1 mg Route: I.V. Start: 10:42 AM Stop: 10:42 AM Medication: Heparin Amount: 4000 units Route: I.V. I, the attending physician, have reviewed and verified all procedure medications. Yes, all medications given per verbal order History/Risk Factors Hypertension: Yes Dyslipidemia: No Peripheral Arterial Disease (PAD): No Myocardial Infarction (MT): No Obesity: No Renal Disease: No Tobacco Use: Never Prior Interventions PCI: No CABG: No Valve Surgery: No Report Signatures Finalized by Mesfin Vitale MD on 08/02/2023 05:49 PM
[2023-07-24 09:13] LABS: Partial Thromboplastin Time 91.3 SECONDS (23.9-36.7)
--- NOTE | 2023-07-24 10:28 | W.PM.OPSUD ---
Surgery/Procedure H&P Update DATE OF PROCEDURE: July 24, 2023 DATE H&P PERFORMED: 07/24/23 H&P UPDATE INFORMATION: I have reviewed H&P completed within last 30 days, I have examined patient prior to procedure and No changes to prior documentation PREOP DIAGNOSIS: NSTEMI PRIMARY INDICATION FOR PROCEDURE: NSTEMI PLANNED PROCEDURE: Left heart cath with possible percutaneous coronary intervention PATIENT REASSESSED PRIOR TO SEDATION, WITH NO CHANGE NOTED: Yes PHYSICAL EXAM: alert, oriented x 3, clear to auscultation bilaterally and regular rate & rhythm AIRWAY EVAL/ANESTHESIA PLAN: normal airway, ASA III, Local Anesthesia, Risks, benefits & alternatives of sedation and/or procedure discussed and Patient agrees to continue as planned ADDITIONAL INFORMATION: Moderate sedation
[2023-07-24] MEDS: cefTRIAXone 1,000 MG in sodium chloride 0.9% (plus) 50 ML 100 MG IV (15:56)
[2023-07-24] MEDS: atorvastatin 40 mg Tablet PO (17:03)
[2023-07-24] MEDS: amlodipine 10 mg Tablet PO (17:03)
[2023-07-24] MEDS: sertraline 50 mg Tablet 25 MG PO (17:03)
[2023-07-24] MEDS: pantoprazole DR 40 mg Tablet PO (17:03)
[2023-07-24] MEDS: finasteride 5 mg Tablet PO (17:04)
[2023-07-24] MEDS: docusate sodium 100 mg Capsule PO (17:04)
[2023-07-24] MEDS: famotidine 20 mg Tablet PO (17:04)
--- NOTE | 2023-07-24 17:24 | P.PN_ITS ---
Subjective 2 Subjective: He reports he is doing okay. Denies chest pain or pressure. Is not short of breath. No nausea vomiting or diarrhea. No abdominal pain. Vitals/I&O/Wt Last Vital Signs Temp 99.4 F 07/24/23 16:00 Pulse 77 07/24/23 16:00 Resp 24 H 07/24/23 16:00 BP 140/67 07/24/23 16:00 Pulse Ox 92 07/24/23 16:00 O2 Del Method Room Air 07/24/23 16:00 O2 Flow Rate 2 07/23/23 16:04 07/24/23 07/24/23 07/24/23 06:59 14:59 22:59 Intake Total 435.5 / 553.657 460.5 / 460.5 50 / 510.5 Output Total 350 / 600 Balance 85.5 / -46.343 460.5 / 460.5 50 / 510.5 Weight last 48 hrs Weight 106.503 kg Weight 106.549 kg Weight 104.326 kg Physical Exam 2 Narrative: Accompanied by his . Const: COMMON NORMALS: patient oriented x3 and alert GENERAL APPEARANCE: c ooperative ORIENTATION/CONSCIOUSNESS: Yes awake OTHER: Mildly hard of hearing. HENMT: COMMON NORMALS: oropharynx normal Neck/C-Spine: COMMON NORMALS: no JVD Resp: COMMON NORMALS: normal respiratory effort and clear to auscultation bilaterally AUSCULTATION: clear to auscultation bilaterally Cardio: COMMON NORMALS: no JVD, regular rhythm, S1 normal heart sound present, S2 normal heart sound present and No murmurs present (Cardio) RHYTHM: regular rhythm HEART SOUNDS: S1 normal heart sound present and S2 normal heart sound present GI: COMMON NORMALS: Normal to inspection, nondistended, normoactive bowel sounds present, Soft to palpation and non-tender PALPATION: Yes Soft to palpation Extremity: COMMON NORMALS: no joint enlargement and no pedal edema Neuro: COMMON NORMALS: patient oriented x3 and moves all extremities S ENSORIUM/ORIENTATION: Yes alert Skin: COMMON NORMALS: no rashes or lesions noted GENERAL SKIN EXAM: no rashes or lesions noted Data 07/24/23 01:16 07/24/23 01:16 Micro: Microbiology 07/23/23 14:34 Blood Culture - Preliminary Blood NEGATIVE TO DATE 07/23/23 14:31 Blood Culture - Preliminary Blood NEGATIVE TO DATE A&P Assessment and plan (1) Acute non-ST elevation myocardial infarction (NSTEMI): (2) Cystitis: (3) Pyelonephritis: Plan Chest pain, with NSTEMI: Reviewed vitals, CBC, INR, CMP, troponin series, echocardiogram. reviewed cardiology note. Discussed with soda drier feeder. Noted likely prior event in RCA, no possibility to revascularize. Continue medical treatment. Continue anticoagulation for now. Risk of bleeding. Monitor PTT. Reassess hemoglobin. -Has received aspirin, Plavix, heparin drip in the emergency room, nitroglycerin patch UTI: Complicated UTI with ascending UTI in a male without pyelonephritis. Continue ceftriaxone. Follow-up urine cultures. Reviewed blood cultures regular. Denies current urinary retention. Has had previously history of BPH for which he underwent TURP. Takes finasteride. Continue. Attestations 2 Medical Necessity Statement*: Continue admission for assessment of management of NSTEMI, complicated UTI. Diagnoses Acute non-ST elevation myocardial infarction (NSTEMI) I21.4 Cystitis N30.90 Pyelonephritis N12
[2023-07-24] MEDS: sodium chloride 0.9% 1,000 ML 50 ML IV (18:33)
[2023-07-24] MEDS: lactobacillus 1 Tablet 1 TAB PO (18:33)
[2023-07-24] MEDS: donepezil 5 MG Tablet 10 MG PO (20:13)
[2023-07-24] MEDS: enoxaparin 80 mg/0.8 mL Syringe SUBCUT (20:13)
[2023-07-24] MEDS: enoxaparin 30 mg/0.3 mL Syringe SUBCUT (20:13)
[2023-07-25] VITALS: BP 147/76; PULSE 74; RESP 16; O2SAT 91
[2023-07-25] MEDS: vancomycin 1,500 MG/300 ML PIGGYBACK 200 MG IV (02:56)
[2023-07-25 03:52] LABS: Platelet Count 138 10^3/cmm (157-399)
[2023-07-25 04:00] VITALS: BP 156/76; PULSE 74; RESP 16; TEMP 37.1; O2SAT 93
[2023-07-25 05:57] VITALS: BMI 26.4
[2023-07-25 07:11] VITALS: BP 154/77; PULSE 73; RESP 24; TEMP 36.7; O2SAT 94
[2023-07-25] MEDS: enoxaparin 80 mg/0.8 mL Syringe SUBCUT (08:32)
[2023-07-25] MEDS: enoxaparin 30 mg/0.3 mL Syringe SUBCUT (08:32)
[2023-07-25] MEDS: aspirin 81 mg EC Tablet PO (08:32)
[2023-07-25] MEDS: famotidine 20 mg Tablet PO (08:32)
--- NOTE | 2023-07-25 08:52 | P.PN_ITS ---
Subjective 2 Subjective: Patient is doing well. no chest pain. Vitals/I&O/Wt Last Vital Signs Temp 98.0 F 07/25/23 07:11 Pulse 73 07/25/23 07:11 Resp 24 H 07/25/23 07:11 BP 154/77 07/25/23 07:11 Pulse Ox 94 07/25/23 07:11 O2 Del Method Room Air 07/25/23 07:11 O2 Flow Rate 2 07/23/23 16:04 07/24/23 07/25/23 07/25/23 22:59 06:59 14:59 Intake Total 1590 / 2050.5 300 / 2350.5 540 / 540 Output Total 140 / 140 Balance 1450 / 1910.5 300 / 2210.5 540 / 540 Weight last 48 hrs Weight 234 lb 4.8 oz Weight 234 lb 12.8 oz Weight 234 lb 14.4 oz Weight 230 lb Physical Exam 2 Narrative: GENERAL: Patient is alert, awake and oriented x3. [] NECK: No jugular vein distension. [] HEENT: No cyanosis. No icterus. No pallor. [] HEART: Regular S1 and S2. Grade 3/6 systolic murmur LUNGS: Clear to auscultate bilaterally. [] CENTRAL NERVOUS SYSTEM: Grossly nonfocal. [] EXTREMITIES: Lower extremities with no edema Data 07/25/23 03:19 07/24/23 01:16 Micro: Microbiology 07/23/23 14:34 Blood Culture - Preliminary Blood NEGATIVE TO DATE 07/23/23 14:31 Blood Culture - Preliminary Blood NEGATIVE TO DATE A&P Assessment and plan (1) Acute non-ST elevation myocardial infarction (NSTEMI): (2) Cystitis: (3) HLD (hyperlipidemia): Plan Patient's coronary angiogram showed's subtotally occluded RCA with collaterals from left system. It was heavily calcified vessel. We were able to wire across the stenosis and balloon with 1.5 balloon, however no other equipment will cross. Given patient is chest pain-free, troponin trended up only to 100 and presence of collaterals, we decided to medically treated. Continue aspirin and plavix. High intensity statin therapy. Will start metoprolol Thank you for involving us with care of this patient. Outpatient cardiology followup. Please call with questions. Attestations 2 Medical Necessity Statement*: Care expected to cross 2 midnights. Coding Level of Care Code Acute Code for Chg Fwd Diagnoses Acute non-ST elevation myocardial infarction (NSTEMI) I21.4 Cystitis N30.90 HLD (hyperlipidemia) E78.5
[2023-07-25 11:08] LABS: Basophils % 0.3 %; Eosinophils # 0.1 10^3/uL (0.0-0.8); Eosinophils % 1.3 %; Hematocrit 39.7 % (37-53); Mean Corpuscular HGB Conc 33.5 g/dL (30-55); Mean Corpuscular Hemoglobin 31.6 pg (27-33); Mean Corpuscular Volume 94.3 fl (82-101); Mean Platelet Volume 12.2 fL (7.4-10.4); Monocytes # 1.1 10^3/uL (0.2-0.9); Monocytes % 11.7 %; Neutrophils # 7.07 10^3/uL (1.8-7.7); Neutrophils % 75.2 %; Nucleated Red Blood Cells % 0 %; Platelet Count 154 10^3/cmm (157-399); Red Blood Count 4.21 10^6/uL (3.85-5.65); Red Cell Distribution Width 13.1 % (12.1-15.1)
[2023-07-25] MEDS: clopidogrel 75 mg Tablet PO (11:13)
[2023-07-25 11:28] LABS: Blood Urea Nitrogen 22 mg/dL (8-23); Calcium 8.7 mg/dL (8.5-10.5); Carbon Dioxide 24 mmol/L (22-29); Chloride 106 mmol/L (98-107); Glucose 89 mg/dL (65-115); Osmolality Calculated 295 mOsm/kg (285-295); Sodium 141 mmol/L (136-145)
[2023-07-25 11:29] LABS: Anion Gap 14.5 (5-19); Potassium 3.5 mmol/L (3.5-5.1)
[2023-07-25 11:38] VITALS: BP 130/68; PULSE 65; RESP 13; TEMP 36.4; O2SAT 94
[2023-07-25 14:00] VITALS: PULSE 67
--- NOTE | 2023-07-25 14:11 | PM.DCS ---
Discharge Providers Date of Admission: 07/23/23 19:28 Date of Discharge: July 25, 2023 Attending Provider at Admission: Aditi Puckett MD Attending Provider at Discharge: Ranulfo Small Diagnoses at Discharge Discharge Diagnosis (1) Acute non-ST elevation myocardial infarction (NSTEMI): Status: Acute (2) Cystitis: Status: Acute (3) HLD (hyperlipidemia): Status: Acute Reason for Visit Reason for Visit: N/V / Chils Brief History: Adolfo Ramos is a 82 year old male with a past medical history of hypertension, hyperlipidemia, extensive family history of CAD, who presents [facility] due to a 2 to 3-week history of substernal left-sided chest pain, with shortness of breath, and now with left-sided flank pain. Patient tells me that for the last 2 to 3 weeks has been having left-sided chest pain, feeling a twinge in his chest, becoming more severe, becoming more frequent, nonradiating, associate with shortness of breath, however what brought him to the hospital was that he works for [employer] he was driving a car back, when he started to develop severe chills, severe shakes, feeling unwell, he has been having some left flank pain, but now he is developing bilateral flank pain, felt fatigue, malaise, no fevers, no cough, no abdominal pain, no diarrhea, does report dysuria Hospital Course Hospital Course He was started on treatment for urinary tract infection, with concern for possible pyelonephritis was assessed with CT abdomen pelvis which showed ascending urinary tract infection bilaterally, no evidence of bladder., But small subcentimeter foci of hypoenhancement in the left kidney raising question of early pyelonephritis. No obstructive uropathy. He denies any difficulties with urination. Has history of TURP, on finasteride which was continued. Urine culture growing gram-negative rods. Please follow-up final cultures. At discharge he will continue with cefdinir. His leukocytosis has resolved. He is feeling much better. Afebrile. Responding to treatment. He was seen and assessed by cardiology with noted troponin elevation on presentation, positive delta hide troponin up to 100. He was assessed by echocardiogram, with finding of normal ejection fraction, grade 1 diastolic function, mild aortic stenosis, mild aortic regurgitation. Mild TVR. Without prior comparison. 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 Heavily calcified vessel. Could cross wire with balloon, however, no other equipment, and as he is remained free of chest pain subsequently, presence of collaterals, the safer route was deemed to be continued medical treatment. He has remained chest pain-free since then. Doing better. He started on aspirin, Plavix, metoprolol, statin is intensified to 40 mg atorvastatin. Continue to optimize cardiovascular risk factors. Physical Exam Narrative: Accompanied by his . Sitting up in the chair. Pleasant, conversant. Const: COMMON NORMALS: patient oriented x3 and alert GENERAL APPEARANCE: cooperative ORIENTATION/CONSCIOUSNESS: Yes awake OTHER: Mildly hard of hearing. HENMT: COMMON NORMALS: oropharynx normal Neck/C-Spine: COMMON NORMALS: no JVD Resp: COMMON NORMALS: normal respiratory effort and clear to auscultation bilaterally AUSCULTATION: clear to auscultation bilaterally Cardio: COMMON NORMALS: no JVD, regular rhythm, S1 normal heart sound present, S2 normal heart sound present and No murmurs present (Cardio) RHYTHM: regular rhythm HEART SOUNDS: S1 normal heart sound present and S2 normal heart sound present GI: COMMON NORMALS: Normal to inspection, nondistended, normoactive bowel sounds present, Soft to palpation and non-tender PALPATION: Yes Soft to palpation Extremity: COMMON NORMALS: no joint enlargement and no pedal edema NARRATIVE EXTREMITY EXAM: No pulsatile mass, bleeding at the right wrist. Right hand perfused. He denies any issues. Neuro: COMMON NORMALS: patient oriented x3 and moves all extremities SENSORIUM/ORIENTATION: Yes alert Skin: COMMON NORMALS: no rashes or lesions noted GENERAL SKIN EXAM: no rashes or lesions noted Discharge Data Studies Completed and Pending Completed Studies During Hospitalization Category Date Time Status CT abdomen pelvis w con* [id number] Stat Cat Scan 07/23/23 18:15 Completed XR chest 2V* [id number] Stat Exams 07/23/23 14:56 Completed CV. echo complete* [id number] Routine Ultrasound 07/24/23 06:00 Completed Pending at discharge Category Date Time Status [facility] request for service Routine Exams 07/24/23 08:42 Taken Basic Metabolic Panel AM LABS Lab 07/26/23 04:00 Ordered Basic Metabolic Panel AM LABS Lab 07/27/23 04:00 Ordered Blood Culture Stat Lab 07/23/23 14:34 Results Complete Blood Count w/Auto AM LABS Lab 07/26/23 04:00 Ordered Complete Blood Count w/Auto AM LABS Lab 07/27/23 04:00 Ordered Platelet Count Q2D Lab 07/27/23 04:00 Ordered Urine Culture Stat Lab 07/23/23 11:11 Results Vancomycin Trough Timed Lab 07/25/23 14:00 Ordered Radiology Impressions Chest X-Ray 07/23/23 14:56 IMPRESSION: 1. No acute cardiopulmonary abnormality. Abdomen/Pelvis CT 07/23/23 18:15 IMPRESSION: 1. Findings suggestive of cystitis with ascending urinary infection bilaterally. No convincing evidence of pyelonephritis, though there are 2 subcentimeter foci of hypoenhancement in the left kidney raising the question of very early pyelonephritis. Correlation with urinalysis and laboratory findings is recommended. Laboratory Results WBC 9.40 10^3/uL (3.29-11.43) 07/25/23 03:19 RBC 4.21 10^6/uL (3.85-5.65) 07/25/23 03:19 Hgb 13.30 g/dL (11.27-16.99) 07/25/23 03:19 Hct 39.7 % (37-53) 07/25/23 03:19 MCV 94.3 fl (82-101) 07/25/23 03:19 MCH 31.6 pg (27-33) 07/25/23 03:19 MCHC 33.5 g/dL (30-55) D 07/25/23 03:19 RDW 13.1 % (12.1-15.1) 07/25/23 03:19 Plt Count 138 10^3/cmm (157-399) L 07/25/23 03:19 Plt Count 154 10^3/cmm (157-399) L 07/25/23 03:19 MPV 12.2 fL (7.4-10.4) H 07/25/23 03:19 Neut % (Auto) 75.2 % 07/25/23 03:19 Lymph % (Auto) 11.0 % 07/25/23 03:19 Norman % (Auto) 11.7 % 07/25/23 03:19 Eos % (Auto) 1.3 % 07/25/23 03:19 Baso % (Auto) 0.3 % 07/25/23 03:19 Neut # (Auto) 7.07 10^3/uL (1.8-7.7) 07/25/23 03:19 Lymph # (Auto) 1.0 10^3/uL (0.8-4.8) 07/25/23 03:19 Norman # (Auto) 1.1 10^3/uL (0.2-0.9) H 07/25/23 03:19 Eos # (Auto) 0.1 10^3/uL (0.0-0.8) 07/25/23 03:19 Baso # (Auto) 0.0 10^3/uL (0.0-0.1) 07/25/23 03:19 Nucleated RBC % (auto) 0 % 07/25/23 03:19 Nucleated RBCs # 0.0 /100WBC 07/25/23 03:19 PT 14.60 SECONDS (12.1-14.9) 07/23/23 23:10 INR 1.10 (0.8-1.2) 07/23/23 23:10 APTT 91.3 SECONDS (23.9-36.7) H 07/24/23 08:38 Sodium 141 mmol/L (136-145) 07/25/23 03:19 Potassium 3.5 mmol/L (3.5-5.1) 07/25/23 03:19 Chloride 106 mmol/L (98-107) 07/25/23 03:19 Carbon Dioxide 24 mmol/L (22-29) 07/25/23 03:19 Anion Gap 14.5 (5-19) 07/25/23 03:19 BUN 22 mg/dL (8-23) 07/25/23 03:19 Creatinine 0.5 mg/dL (0.7-1.2) L 07/25/23 03:19 GFR Calculation Not Reportable 07/25/23 03:19 Glucose 89 mg/dL (65-115) 07/25/23 03:19 Estimat Average Glucose 94 07/23/23 23:10 Hemoglobin A1c 4.9 % (4.0-6.0) 07/23/23 23:10 Calculated Osmolality 295 mOsm/kg (285-295) 07/25/23 03:19 Lactic Acid 2.0 mmol/L (0.5-2.2) 07/23/23 23:10 Calcium 8.7 mg/dL (8.5-10.5) 07/25/23 03:19 Phosphorus 4.8 mg/dL (2.5-4.5) H 07/24/23 01:16 Magnesium 1.8 mg/dL (1.7-2.3) 07/24/23 01:16 Total Bilirubin 1.2 mg/dL (0.15-1.2) 07/23/23 12:35 AST 18 U/L (0-40) 07/23/23 12:35 ALT 15 U/L (0-41) 07/23/23 12:35 Alkaline Phosphatase 123 U/L (40-130) 07/23/23 12:35 Troponin T Baseline 50 ng/L (0-15) H 07/23/23 16:52 Troponin T 120 Minute 56.82 ng/L (0-15) H 07/23/23 19:10 Delta Troponin T 6.82 ABS# (0-10) 07/23/23 19:10 Troponin T Hi Sens 6Hr 100.3 ng/L (0-15) H 07/23/23 23:10 Troponin T Hi Sens 6Hr Delta 50.3 ng/L (0-12) H* 07/23/23 23:10 C-Reactive Protein 93.9 mg/L (0.0-4.9) H 07/23/23 23:10 NT-Pro-B Natriuret Pep 4464 pg/mL (0-450) H 07/23/23 23:10 Total Protein 7.1 g/dL (6.6-8.7) 07/23/23 12:35 Albumin 4.0 g/dL (3.5-5.2) 07/23/23 12:35 Globulin 3.1 g/dL (1.3-4.6) 07/23/23 12:35 Triglycerides 26 mg/dL (0-150) 07/23/23 23:10 Cholesterol 104 mg/dL (0-200) 07/23/23 23:10 LDL Cholesterol, Calc 21 mg/dL (50-129) L 07/23/23 23:10 HDL Cholesterol 78 mg/dL (60-100) 07/23/23 23:10 LDL/HDL Ratio 0.27 RATIO (0.00-3.22) 07/23/23 23:10 Cholesterol/HDL Ratio 1.33 mg/dL (1.0-5.00) 07/23/23 23:10 Lipase 24 U/L (13-60) 07/23/23 12:35 Procalcitonin 0.34 ng/mL (0-0.5) 07/23/23 12:35 TSH 0.61 uIU/mL (0.27-4.20) 07/23/23 23:10 Urine Color Colorless (Yellow) 07/23/23 11:11 Urine Appearance Hazy (CLEAR) A 07/23/23 11:11 Urine pH 7 (5-7) 07/23/23 11:11 Ur Specific [place] 1.005 (1.005-1.030) 07/23/23 11:11 Urine Protein 1+ (Negative) H 07/23/23 11:11 Urine Glucose (UA) Norm (Normal) 07/23/23 11:11 Urine Ketones Negative (Negative) 07/23/23 11:11 Urine Blood 3+ (Negative) H 07/23/23 11:11 Urine Nitrate Negative (Negative) 07/23/23 11:11 Urine Bilirubin Neg (Negative) 07/23/23 11:11 Urine Urobilinogen Norm mg/dL (Negative) 07/23/23 11:11 Ur Leukocyte Esterase 1+ (Negative) H 07/23/23 11:11 Urine RBC 0-4 /hpf (0-2) H 07/23/23 11:11 Urine WBC 25-40 /hpf (0-5) H 07/23/23 11:11 Ur Squamous Epith Cells 0-4 /hpf (0-5) H 07/23/23 11:11 Amorphous Sediment Not Reportable 07/23/23 11:11 Urine Bacteria 3+ /hpf (NONE) H 07/23/23 11:11 Influenza Type A Ag negative (Negative) 07/23/23 15:02 Influenza Type B Ag negative (Negative) 07/23/23 15:02 SARS-CoV-2 Ag (Rapid) negative (Negative) 07/23/23 15:02 Vitals Last Vital Signs Temp 97.6 F 07/25/23 11:38 Pulse 65 07/25/23 11:38 Resp 13 07/25/23 11:38 BP 130/68 07/25/23 11:38 Pulse Ox 94 07/25/23 11:38 O2 Del Method Room Air 07/25/23 11:38 O2 Flow Rate 2 07/23/23 16:04 Discharge Plan Discharge Patient Disposition: Home Condition: Stable Prescriptions: New atorvastatin 40 mg Tablet 40 mg PO QPM Qty: 90 0RF aspirin 81 mg Tablet,Delayed Release (Dr/Ec) 81 mg PO DAILY Qty: 90 0RF cefdinir 300 mg capsule 300 mg PO BID 10 Days Qty: 20 0RF nitroglycerin 0.4 mg tablet, sublingual 0.4 mg sublingual Q5M PRN (Reason: chest pain) Qty: 25 0RF Rx Instructions: do not exceed 3 doses per episode clopidogrel 75 mg Tablet 75 mg PO DAILY Qty: 90 0RF metoprolol tartrate 25 mg Tablet 25 mg PO BID@0900,2100 Qty: 180 0RF Continued donepezil 10 mg tablet 10 mg PO BEDTIME omeprazole 40 mg capsule,delayed release(DR/EC) 40 mg PO QPM famotidine 20 mg tablet 20 mg PO BID amlodipine 10 mg tablet 10 mg PO QPM sertraline 25 mg tablet 25 mg PO QPM finasteride 5 mg tablet 5 mg PO QPM calcium carbonate [Calcium 600] 600 mg calcium (1,500 mg) Tablet 1,200 mg PO QPM docusate sodium [Colace] 100 mg Capsule 100 mg PO QPM Probiotic 3 billion cell Capsule 3,000 mmu cells PO QPM Rx Instructions: administer with a meal Discontinued simvastatin 20 mg tablet 10 mg PO QPM ibuprofen 200 mg Tablet 600 mg PO Q6H PRN (Reason: Pain) Discharge Orders: Discharge Order (Routine); Ordered 07/25/23 Ordered By: Ranulfo Small Referrals: Cathie Ku MD [Referring] - (Please call for an follow-up appointment within 4 to 7 days. ) Discharge Diet: Cardiac Discharge Activity: Increase activity as tolerated and Limit activity as instructed Patient Instructions: Metoprolol (By mouth), Nitroglycerin (By mouth), Aspirin (By mouth), Atorvastatin (By mouth), Clopidogrel (By mouth) (Plavix), Cefdinir (By mouth), Urinary Tract Infection in Men (DC), Urinary Tract Infection in Men (GEN), Heart Healthy Diet (DC), Heart Catheterization (DC), Interstitial Cystitis (GEN), After Radial Heart Catheterization (GEN), Chest Pain Stoplight, Opioid Safety, Post Angiogram Home Care Instructions, Pyelonephritis Activity Restrictions/Additional Instructions: Protect your right wrist for the next while, avoid lifting anything heavier than 2 pounds for the next 3 days. If you notice any pulsatile mass, bleeding at the site of access or paleness or numbness of the right hand or other concerning symptoms seek medical attention immediately. 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 Continue medical treatment. Continue to optimize risk factors of cardiovascular disease. Continue aspirin Plavix, started on metoprolol and cholesterol medication is changed for more intensive medication. Please stop ibuprofen, avoid NSAIDs due to increase in risk of heart attack, stroke. Follow-up with your primary doctor and with cardiology. Complete antibiotic course for UTI. Gram-negative rods are growing in urine. Please have your primary doctor follow-up final urine cultures. Discussed with your primary doctor regarding ascending urinary tract infection not yet pyelonephritis. Consider follow-up with urology. Discharge Attestations Time Spent in Discharge Care*: greater than 30 min Quality Metrics Clinical Quality Measures [ No reported AMI, CVA or VTE this stay] Coding Level of Care Code 32168 Total time (in minutes) for Discharge: 45 Diagnoses Acute non-ST elevation myocardial infarction (NSTEMI) I21.4 Cystitis N30.90 HLD (hyperlipidemia) E78.5
--- NOTE | 2023-07-25 15:10 | PC.NURSE ---
Discharge Note Patient discharged to home via private vehicle accompanied by . Discharge instructions reviewed with patient and/or mechanical service representative. Mobile pharmacy medications and/or prescriptions provided. Belongings/home medications returned. Pt and informed and provided pt portal brochure to check pt's labs.
== END 2023-07-25 15:09 | disposition home or self-care (01) | DRG 251 ==
LOC: ER 17:00 → CSU 19:34
PROVIDERS: Family Medicine; Internal Medicine; Physician Assistant; Admitting Provider Internal Medicine; Emergency Provider Internal Medicine; Visit Provider Internal Medicine
PROC: 02703ZZ Dilation of Coronary Artery, One Artery, Percutaneous Approach (ICD-10-PCS; principal; 2023-07-24 10:00)
PROC: 02703ZZ Dilation of Coronary Artery, One Artery, Percutaneous Approach (ICD-10-PCS; 2023-07-24 10:00)
DX: I21.4 Non-ST elevation (NSTEMI) myocardial infarction (principal); N39.0 Urinary tract infection, site not specified; I10 Essential (primary) hypertension; E78.5 Hyperlipidemia, unspecified; N40.0 Benign prostatic hyperplasia without lower urinary tract symptoms; I25.10 Atherosclerotic heart disease of native coronary artery without angina pectoris; Z11.52 Encounter for screening for COVID-19; Z82.49 Family history of ischemic heart disease and other diseases of the circulatory system
CPT/HCPCS: 36415; 71046; 74177; 80048; 80053; 80061; 81001; 83036; 83605; 83690; 83735; 83880; 84100; 84145; 84443; 84484; 85025; 85049; 85347; 85610; 85730; 86140; 87040; 87077; 87086; 87186; 87426; 87804; 92920; 93005; 93306; 93454; 94664; 96365; 96366; 96367; 96372; 96376; 99152; 99153; 99285; C1725; C1769; C1887; C1894; J0696; J1644; J1650; J2250; J2270; J3010; J3370; J3490; J7030; Q9967